=== PATIENT | female | born 1995 | race Caucasian/White ===

== ENCOUNTER 2019-02-25 23:41 | Emergency (ER) | payer SELFPAY ==
[~2019-02-25] VITALS: Ht 162.6 cm; Wt 68.0 kg
[2019-02-26 01:05] LABS: BASOPHILS % 0.7 % (0.0-2.0); EOSINOPHILS % 4.6 % (0.0-5.0); HEMOGLOBIN. 12.3 g/dL (12.0-16.0); MEAN CORPUSCULAR VOLUME 81.4 fL (81.0-99.0); MEAN PLATELET VOLUME 8.1 fl (7.4-10.4); MONOCYTES % 5.8 % (2.0-8.0); NEUTROPHILS % 63.9 % (40.0-76.0); PLATELET 240 x1000/uL (130-400); RED BLOOD CELL COUNT 4.55 mill/uL (4.2-5.4); RED CELL DISTRIBUTION WIDTH 15.6 % (11.6-14.6)
[2019-02-26 01:13] LABS: CHLORIDE 112 mEq/L (98-107)
[2019-02-26] MEDS ORDERED: OLANZAPINE 5MG TABLET ODT PO ONE (01:15)
[2019-02-26] MEDS ORDERED: LORAZEPAM 1MG TABLET PO ONE (01:15)
[2019-02-26 01:17] LABS: ETHANOL BLOOD < 10 mg/dL
[2019-02-26 01:18] LABS: HCG SCREEN NEGATIVE
[2019-02-26 03:41] LABS: *AMPHETAMINES SCREEN URINE NEGATIVE (NEGATIVE)
[2019-02-26 03:42] LABS: *BARBITURATES SCREEN URINE NEGATIVE (NEGATIVE); *BENZODIAZEPINES SCREEN URINE NEGATIVE (NEGATIVE); *COCAINE SCREEN URINE NEGATIVE (NEGATIVE); METHADONE URINE SCREEN NEGATIVE (NEGATIVE); OPIATES URINE SCREEN NEGATIVE (NEGATIVE)
[2019-02-26 03:43] LABS: CANNABINOID URINE SCREEN NEGATIVE (NEGATIVE); PHENCYCLIDINE URINE SCREEN NEGATIVE (NEGATIVE)
[2019-02-26] MEDS ORDERED: HALOPERIDOL LACTATE 5MG/ML VIAL IM ONE (05:15)
[2019-02-26] MEDS ORDERED: LORAZEPAM 2MG/ML CPJ IM ONE (05:15)
[2019-02-26 11:00] VITALS: BP 100/59
== END 2019-02-26 11:45 | disposition home or self-care (01) ==
LOC: ER 23:41
DX: F20.9 Schizophrenia, unspecified (principal); R45.850 Homicidal ideations; Z78.1 Physical restraint status
CPT/HCPCS: 36415; 80048; 80305; 80307; 80320; 80329; 81025; 84703; 99284; G0480